=== PATIENT | female | born 1985 | race Caucasian/White ===

== ENCOUNTER 2022-05-09 20:09 | Emergency (ER) | payer OTHER, SELFPAY ==
--- NOTE | 2022-05-09 | ECG_ITS ---
Test Reason : CHEST PAIN Blood Pressure : / mmHG Vent. Rate : 066 BPM Atrial Rate : 066 BPM P-R Int : 198 ms QRS Dur : 102 ms QT Int : 410 ms P-R-T Axes : 027 011 044 degrees QTc Int : 429 ms Normal sinus rhythm Intra-ventricular conduction delay Borderline ECG No previous ECGs available Referred By: Generic ED Physician Electronically Signed By:BHAVIK WELLER MD
--- NOTE | ~2022-05-09 | XR_ITS ---
EXAMINATION: XR CHEST CLINICAL INFORMATION: Chest pain. COMPARISON: None TECHNIQUE: Frontal view of the chest was obtained. FINDINGS: No significant abnormality is noted involving the heart, lungs, mediastinum, bony thorax or soft tissues. XR/XR chest 1V IMPRESSION: Unremarkable chest examination.
[2022-05-09 20:23] VITALS: BP 150/103; PULSE 74; RESP 18; TEMP 36.6; O2SAT 99; BMI 33.0
[2022-05-09 20:37] LABS: MANUAL DIFF FLAG NO
[2022-05-09 20:38] LABS: Basophils Percent Auto 0.5 % (0-2); Eosinophils Absolute Auto 0.4 X10*3/uL (0.0-0.4); Eosinophils Percent Auto 4.7 % (0-4); Hematocrit 39.4 % (37.0-47.0); Hemoglobin 13.7 g/dl (12.0-16.0); Imm Gran Abs Auto 0.01 X10*3/uL (0.00-0.03); Imm Gran Pct Auto 0.1 % (0.0-0.4); Lymphocytes Absolute Auto 2.7 X10*3/uL (1.2-4.9); Lymphocytes Percent Auto 36.4 % (20-40); Mean Corpuscular HGB Conc 34.8 g/dl (31.0-35.0); Mean Corpuscular Hemoglobin 32.6 pg (27.0-33.0); Mean Corpuscular Volume 93.8 fL (80.0-98.0); Mean Platelet Volume 9.5 fL (9.4-12.3); Monocytes Absolute Auto 0.7 X10*3/uL (0.1-1.2); Monocytes Percent Auto 8.7 % (2-11); Neutrophils Absolute Auto 3.7 x10*3/uL (2.0-8.3); Neutrophils Percent Auto 49.6 % (45-73); Platelet Count 264 X10*3/uL (160-400); Red Cell Distribution Width 11.9 % (11.0-16.0); White Blood Count 7.5 X10*3/uL (4.8-10.8)
[2022-05-09 20:52] LABS: Anion Gap 15 (12-20); Blood Urea Nitrogen 15 mg/dL (9-16); Calcium 9.4 mg/dL (8.4-10.2); Carbon Dioxide 25 mmol/L (22-29); Chloride 104 mmol/L (96-108); Creatinine Clr Calc Pharmacy 76.5; Estimated Glomerular Filt Rate 52; Glucose Random 101 mg/dL (60-115); Potassium 3.8 mmol/L (3.3-5.1); Sodium 140 mmol/L (135-145)
[2022-05-09 21:00] LABS: Troponin-I High Sensitivity < 3.5 ng/L (<3.5-17.0)
[2022-05-09 22:56] VITALS: BP 135/88; PULSE 66; RESP 17; TEMP 36.8; O2SAT 97
--- NOTE | 2022-05-09 22:58 | ED.CHESTPAIN ---
HPI - Chest Pain General Chief Complaint: Chest Pain Stated Complaint: Chest pain/L arm numbness Time Seen by Provider: 05/09/22 22:50 Source: patient Mode of arrival: ambulatory Limitations: no limitations History of Present Illness HPI narrative: Patient with no significant past medically history , no family history of sudden cardiac or premature coronary artery disease not on any control pills started to notice left-sided sharp chest pain since 13:00 lasting a few sec multiple episodes since 16:00 noticed some tingling sensation in the left arm. No shortness of breath no fever no cough Related Data Allergies Allergy/AdvReac Type Severity Reaction Status Date / Time No Known Allergies Allergy Unverified 04/16/20 16:19 [No Known Allergies*] Review of Systems Review of Systems: Yes all other systems are reviewed and are negative [facility] Social History Social History Patient Tobacco Use Status: Never used Tobacco Use of substances other than those prescribed or required for medical reasons: No Substance Use Type: Marijuana Advance Directives: No Patient : No Physical Exam Vital Signs: Vital Signs: Last Vital Signs Temp 98.2 F 05/09/22 22:56 Pulse 67 05/09/22 23:12 Resp 19 05/09/22 23:12 BP 134/84 05/09/22 23:12 Pulse Ox 98 05/09/22 23:12 O2 Del Method 05/09/22 23:12 BMI result Body Mass Index 33.0 Appearance: Alert. Oriented X3. No acute distress. Eyes: PERRLA, No Nystagmus ENT: Pharynx normal. Oral Mucosa moist Neck: Normal inspection. Neck supple. CVS: Normal heart rate and rhythm. Pulses normal. Respiratory: No respiratory distress. Equal air entry bilateral, no wheezing/rales/rhonchi Abdomen: Soft and nontender. Bowel sounds are present, no mass palpable, no CVA tenderness Skin: Skin warm and dry. Normal skin color. Normal skin turgor. Extremities: No lower extremity edema. No calf tenderness Neuro: Oriented X 3. No motor deficit. No sensory deficit.No cerebellar signs , cranial nerves II-XII intact MDM - Chest Pain MDM Narrative Medical decision making narrative: Patient with atypical chest pain heart score of 0 Hizentra troponin negative will discharge patient home advised to follow with PCP Lab Data Attestation: I reviewed the patient's lab results. Result diagrams: 05/09/22 20:33 05/09/22 20:33 Labs: Lab Results 05/09/22 05/09/22 05/09/22 Range/Units 20:33 20:33 20:33 WBC 7.5 (4.8-10.8) X10*3/uL RBC 4.20 (4.20-5.50) X10*6/uL Hgb 13.7 (12.0-16.0) g/dl Hct 39.4 (37.0-47.0) % MCV 93.8 (80.0-98.0) fL MCH 32.6 (27.0-33.0) pg MCHC 34.8 (31.0-35.0) g/dl RDW 11.9 (11.0-16.0) % Plt Count 264 (160-400) X10*3/uL MPV 9.5 (9.4-12.3) fL Immature Gran % (Auto) 0.1 (0.0-0.4) % Neut % (Auto) 49.6 (45-73) % Lymph % (Auto) 36.4 (20-40) % [place] % (Auto) 8.7 (2-11) % Eos % (Auto) 4.7 H (0-4) % Baso % (Auto) 0.5 (0-2) % Lymph # (Auto) 2.7 (1.2-4.9) X10*3/uL [place] # (Auto) 0.7 (0.1-1.2) X10*3/uL Eos # (Auto) 0.4 (0.0-0.4) X10*3/uL Baso # (Auto) 0.0 (0.0-0.2) X10*3/uL Abs Immat Gran (auto) 0.01 (0.00-0.03) X10*3/uL Absolute Neuts (auto) 3.7 (2.0-8.3) x10*3/uL Absolute Nucleated RBC 0.000 (0.0-0.012) X10*3/uL Nucleated RBC % (auto) 0.0 (0.0-0.2) /100WBC Sodium 140 (135-145) mmol/L Potassium 3.8 (3.3-5.1) mmol/L Chloride 104 (96-108) mmol/L Carbon Dioxide 25 (22-29) mmol/L Anion Gap 15 (12-20) BUN 15 (9-16) mg/dL Creatinine 1.19 (0.5-1.4) mg/dL Estim Creat Clear Calc 76.5 Estimated GFR 52 Random Glucose 101 (60-115) mg/dL Calcium 9.4 (8.4-10.2) mg/dL Troponin I High Sens < 3.5 (<3.5-17.0) ng/L ECG Data ECG #1: Attestation: I personally reviewed and interpreted this ECG as follows: Interpretation: Normal sinus rhythm heart rate 66 beats per minute normal interval normal axis no acute distress and no acute ischemia Discharge Plan Discharge Clinical Impression: Atypical chest pain Patient Disposition: Home, Self-Care Instructions: Chest Pain (ED) Additional Instructions: Your blood pressure noticed to be slightly elevated decrease your salt intake Follow with PCP for further evaluation Interventions: ED Discharge Assessment Last Done: 05/09/22 23:17 Discharge Date/Time: 05/09/22 23:19
--- NOTE | 2022-05-09 23:00 | PC.NURSE ---
Pt is aox4. Breaths are even and unlabored. o2 sat 98% RA, RR: 16 bpm. NSR on monitor. Abd is soft and nontender. Skin is pink warm and dry. Pt reports sharp chest pain, 2/10 that started earlier today. Pain radiates to the left arm. MD aware.
[2022-05-09 23:12] VITALS: BP 134/84; PULSE 67; RESP 19; O2SAT 98
--- NOTE | 2022-05-09 23:18 | PC.NURSE ---
Discharge instructions provided to pt. Pt verbalizes understanding.
== END 2022-05-09 23:19 | disposition home or self-care (01) ==
LOC: HO.ED 23:18
PROVIDERS: Emergency Provider Internal Medicine
DX: R07.89 Other chest pain (principal); F12.90 Cannabis use, unspecified, uncomplicated
CPT/HCPCS: 36415; 71045; 80048; 84484; 85025; 93005; 99283; 99285

== ENCOUNTER 2023-10-11 08:42 | Outpatient (AMB) | payer OTHER, SELFPAY ==
[2023-10-11 08:43] VITALS: BP 140/82; PULSE 67; O2SAT 96; BMI 38.4
--- NOTE | 2023-10-11 08:43 | A.OFFPC_ITS ---
Vital Signs 3 10/11/23 08:43 Height 5 ft 6 in Weight 238 lb BMI 38.4 BP 140/82 H Blood Pressure Location Lt brachial Position Standing Pulse 67 Pulse Source Pulse Oximeter Pulse Oximetry (%) 96 Oxygen Delivery Method Room Air Intake Visit Reasons: R Foot Pain Intake Note: pt states watermaster right foot/ankle pain and swelling with no relief. no known injury or fall. Level Vial Setter Required: No Allergies No Known Allergies [No Known Allergies*] Allergy (Verified 10/11/23 10:01) Medication List - Last Reconciled 10/11/23 by BABATUNDE Saul- No Known Home Meds Tobacco use date assessed: 10/11/23 HPI HPI Comments 2 History of Present Illness0 Details HEre for R foot pain Known plantar fasciitis Yesterday went to [place] w/ kids Now having pain, feels swollen Applied ice & stretched Antalgic gait w/ limp Has never had injection on R foot; only L foot (NEOS) Had to have calf lengthening surgery on the L PFSH Social History Patient Tobacco Use Status: Current everyday Tobacco user Cigarettes Per Day: 6 Substance Use Type: Marijuana Cognitive needs: No Hearing needs: No Vision needs: No Questionnaire Thrive Questionnaire Date Thrive assessed: 10/11/23 I am a: Patient What is your living situation today?: I have a steady place to live Within the past 12 months, did the food you bought not last and you didn't have the money to get more?: Never true Within the past 12 months, did you worry whether your food would run out before you got money to buy more?: Never true Do you have trouble paying for medicines?: No Do you have trouble getting transportation to medical appointments?: No Do you have trouble paying your heating and electricity bill?: No Do you have trouble taking care of your child, family member or friend?: No Do you have trouble with day-to-day activities such as bathing, preparing meals, shopping, managing finances, etc.?: No Are you currently unemployed and looking for a job?: No Are you interested in more education?: No Please select the resources that you would like help with: None THRIVE Score: 0 AUDIT C Alcohol Use Questionnaire (AUDIT-C) 1. How often do you have a drink containing alcohol?: Never 2. How many drinks containing alcohol do you have on a typical day when you are drinking?: 1 or 2 3. How often do you have six or more drinks on one occasion?: Never Total Score: 0 Review of Systems Const All systems reviewed & are unremarkable except as noted in HPI and below Physical exam (Primary Care) Vital Signs: Last Vital Signs Pulse 67 10/11/23 08:43 BP 140/82 H 10/11/23 08:43 Pulse Ox 96 10/11/23 08:43 Oxygen Delivery Method Room Air 10/11/23 08:43 BMI result Body Mass Index 38.4 Tobacco/Smoking Status: Tobacco use Status Tobacco use date assessed 10/11/23 10/11/23 08:45 Patient Tobacco Use Status Current everyday Tobacco 10/11/23 09:12 Thrive Assessment: Date of Thrive Assessment Date Thrive assessed 10/11/23 10/11/23 08:45 Extrem Ankle/foot/toe images: 2 1. pain w palpation antalgic gait otherwise normal neurovasc exam + ROM Assessment and Plan Assessment & Plan (1) Plantar fasciitis of right foot: Code(s): M72.2 - Plantar fascial fibromatosis Plan: reviewed exercises and stretches refer back to ARVIND who tx her previsouly for same condition on L side for further eval and tx Plan This note is constructed using voice recognition software. While every effort has been made to ensure accuracy in poultry picking machine tender, still errors may have been included Sometimes, these errors may affect the content or meaning of the given sentence . Total time spent caring for the patient today was 30 minutes. This includes time spent before the visit reviewing the chart, time spent during the visit, and time spent after the visit on documentation Orders: Referrals 2 Orthopedics Referral M72.2 - Plantar fascial fibromatosis Coding Level of Care Code Est Pt Level 4 (71424) Diagnoses Plantar fasciitis of right foot M72.2
== END 2023-10-11 10:10 | disposition home or self-care (01) ==
PROVIDERS: Visit Provider Nurse Practitioner Family
DX: M72.2 Plantar fascial fibromatosis (principal)
CPT/HCPCS: 99214

== ENCOUNTER 2024-10-08 10:00 | Outpatient (AMB) | payer OTHER, SELFPAY ==
[2024-10-08 10:17] VITALS: BP 138/90; PULSE 85; O2SAT 97; BMI 39.1
--- NOTE | 2024-10-08 10:17 | AM.OFFWIN_ITS ---
Intake Vital Signs 10/08/24 10:17 Height 5 ft 6 in Weight 242 lb 2 oz BMI 39.1 BP 138/90 H Blood Pressure Location Rt brachial Position Sitting Pulse 85 Pulse Source Pulse Oximeter Pulse Oximetry (%) 97 Oxygen Delivery Method Room Air Intake Visit Reasons: EP cough, high bp?? Intake Note: Patient here for severe cough that has been present for over a week. She also wanted to discuss her elevated BP. Patient Tobacco Use Status: Current everyday Tobacco user Allergies No Known Allergies [No Known Allergies*] Allergy (Verified 10/08/24 10:27) Do you need a note to return to daycare/school/sports/work: No HPI HPI Comments History of Present Illness Details History of Present Illness - The patient is a 38-year-old female pr esenting with persistent cough and sinusitis. - Cough symptoms have persisted for over a week, progressively worsening, with exacerbation at night. - Past medical history includes childhoo d sports-induced asthma. - Cough is aggravated without major asso ciated symptoms like fever or significant nasal congestion. - Beulah-Starkweather and DayQuil have been emp loyed for symptom management, providing partial relief. - Sinus discomfort was reported primaril y on the left side, addressed with nasal rinses which provided relief. Physical Exam General: Cooperative, healthy appearing, comfortable, no acute distress and well developed Orientation: Patient oriented x3 Limitations: No limitations Head: Normal to inspection Ears: Hearing grossly normal bilaterally, TM's normal bilaterally, EAC normal Nose: Normal external nose present Mouth: moist mucosa, posterior oropharynx erythema, no exucates noted Face and sinus: Sinus pressures noted in maxillary and frontal regions Eyes: Appearance normal, both eyes and all related structures Neck: Normal visual inspection and Yes full ROM Respiratory: Normal respiratory effort and able to speak in complete sentences.CTA Cardiovascular: Regular rate and rhythm. Normal S1 and S2 Skin: No rashes or lesions noted Neuro: Patient oriented x3 Extremities: Normal to inspection [facility] Social History Patient Tobacco Use Status: Current everyday Tobacco user Cigarettes Per Day: 6 Substance Use Type: Marijuana Cognitive needs: No Hearing needs: No Vision needs: No Review of Systems Const All systems reviewed & are unremarkable except as noted in HPI and below Physical Exam Vital Signs: Last Vital Signs Pulse 85 10/08/24 10:17 BP 138/90 H 10/08/24 10:17 Pulse Ox 97 10/08/24 10:17 Oxygen Delivery Method Room Air 10/08/24 10:17 BMI result Body Mass Index 39.1 Office Procedures Nebulizer Treatment Nebulizer Treatment [id number] RX initial, or Nebulizer Subsequent Treatment Office Meds ipratropium 0.5 mg-albuterol 3 mg (2.5 mg base)/3 mL nebulization soln Performing Provider: Hansa Varghese PA-C Performing Location: [facility] [place] [facility] Administered by: Hansa Varghese PA-C on 10/08/24 10:56 Dose Route Admin Location Dispensed Lot Number Expiration Date [facility] Media Services Coordinator 3 mL inhalation 3 mL [id number] 10/25/25 Assessment & Plan Assessment & Plan (1) Lower respiratory infection (e.g., bronchitis, pneumonia, pneumonitis, pulmonitis): Code(s): J22 - Unspecified acute lower respiratory infection Plan: Patient given a nebulizer treatment in office which helped reduce the patient's cough, so I have prescribed an albuterol inhaler to use for shortness of breath and cough. A prescription for benzonatate will be provided to suppress cough, aiming to improve sleep. A swab test for flu, COVID-19, and RSV will be conducted to rule out active viral infections. Supportive care including contin ued use of nasal rinses and monitoring for fever or new respiratory symptoms is advised. Patient was informed and verbally consented to the use of an ambient scribe for clinic note documentation during this visit. Orders: Orders SARS-CoV2/FLU/RSV Today R09.89 - Other specified symptoms and signs involving the circulatory and respiratory systems AMB Nebulizer Treatment Today J22 - Unspecified acute lower respiratory infection Medications: New albuterol sulfate 90 mcg/actuation 2 puffs inhalation Q6H PRN 8.5 grams 0RF shortness of breath or wheezing or cough benzonatate 200 mg PO BEDTIME PRN 10 caps 0RF cough Coding Level of Care Code New Pt Level 4 (83783) Diagnoses Lower respiratory infection (e.g., bronchitis, pneumonia, pneumonitis, pulmonitis) J22 CPT Codes Nebulizer Treatment - Nebulizer Treatment, initial or subsequent: 01486- Nebulizer/MDI RX initial, or Nebulizer Subsequent Treatment ([id number])
== END 2024-10-08 11:05 | disposition home or self-care (01) ==
PROVIDERS: Visit Provider Physician Assistant
DX: J22 Unspecified acute lower respiratory infection (principal)

== ENCOUNTER 2024-10-08 10:00 | Outpatient (REF) | payer OTHER, SELFPAY ==
[2024-10-08 15:32] LABS: Influenza A PCR NEGATIVE (Negative); Influenza B PCR NEGATIVE (Negative); Resp Syncy Virus RNA Qual PCR NEGATIVE (Negative); SARS COV2 PCR INHOUSE NEGATIVE (Negative)
== END 2024-10-08 10:01 | disposition home or self-care (01) ==
LOC: HO.LAB 10:00
PROVIDERS: Physician Assistant
DX: J22 Unspecified acute lower respiratory infection (principal); R09.89 Other specified symptoms and signs involving the circulatory and respiratory systems
CPT/HCPCS: 0241U; 94640; 99202

== ENCOUNTER 2025-05-28 10:28 | Emergency (ER) | payer OTHER, SELFPAY ==
[2025-05-28 10:36] VITALS: BP 159/99; PULSE 81; RESP 18; TEMP 36.8; O2SAT 99; BMI 40.7
--- NOTE | 2025-05-28 10:38 | ED_ITS ---
HPI - General Adult General Chief complaint: Upper Respiratory Symptoms Stated complaint: Cough Congestion Running Nose Time Seen by Provider: 05/28/25 11:08 Source: patient Mode of arrival: ambulatory Limitations: no limitations History of Present Illness ED Provider: Dr. Maguire HPI narrative: 39-year-old female history tobacco use presented hospital for evaluation of 1 month of voice change, sore throat, cough. No body aches. Went to urgent care yesterday negative chest x-ray finding. Symptom has not been improving therefore presents to ER for further evaluation. No acute shortness of breath currently no tachypnea. Related Data Home Medications ?Medication ?Instructions ?Recorded ?Confirmed aripiprazole 5 mg tablet mg PO DAILY 10/08/24 clonidine HCl 0.1 mg tablet mg PO 3XD 10/08/24 Previous Rx's ?Medication ?Instructions ?Recorded albuterol sulfate 90 mcg/actuation 2 puff inhalation Q 6H PRN 10/08/24 aerosol inhaler shortness of breath or wheez ing or cough #8.5 grams benzonatate 200 mg capsule 200 mg PO BEDTIME PRN cough #10 10/08/24 caps albuterol sulfate 90 mcg/actuation 2 puff inhalation Q 6H PRN 05/28/25 aerosol inhaler (Ventolin HFA) shortness of breath or wheezing 5 days #6.7 grams amoxicillin 500 mg capsule 500 mg PO Q12H 7 days #14 c aps 05/28/25 azithromycin 500 mg tablet See Rx Instructions PO .COM PLEX #3 05/28/25 tabs prednisone 20 mg tablet 40 mg (2 x 20 mg) PO DAILY 5 days 05/28/25 #10 tabs Allergies Allergy/AdvReac Type Severity Reaction Status Date / Time No Known Allergies (No Known Allergy Verified 05/28/25 10:40 Allergies*) Review of Systems Review of Systems: Pertinent review of systems as mentioned in HPI. All other system otherwise negative. [facility] Past Medical History [facility] Narrative: Medical history as mentioned in [facility] Social History Social History Patient Tobacco Use Status: Current everyday Tobacco user Cigarettes Per Day: 6 Substance Use Type: Marijuana Advance Directives: No Advance Directives Information Provided: Yes Cognitive needs: No Hearing needs: No Vision needs: No Physical Exam ED Exam Exam: General: Pleasant, no distress, interacting appropriately Head: Normacephalic, atraumatic ENT: oral mucosa moist, neck supple, no tracheal deviation, no sign of exudate in the oropharynx Cardiovascular: regular rate, regular rhythm, no murmurs, rubbing, gallops Respiratory: CTAB, no wheeze, rales, rhonchi Neurological: Awake and alert, no facial droop noted Skin: Warm and dry Psychiatric: Appropriate mood and thoughts Vital Signs: Vital Signs - 24 hr 05/28/25 10:36 Temperature 98.2 F Pulse Rate 81 Respiratory Rate 18 Blood Pressure 159/99 H Pulse Oximetry 99 Oxygen Delivery Method Room Air BMI result Body Mass Index 40.7 Course Course Course Narrative: Rapid medical screening exam was performed. Patient stable at time of evaluation. 39 yo history female history of smoking presented to ED for evaluation for one month of shortness of breath and coughing, sore throat and voice change. Suspect viral laryngitis. No wheezing on exam, No stridor. CXR at walk in was negative. Mickie Maguire, DO 05/28/25 [facility] Medical Decision Making Medical Decision Making [facility] Narrative: This is a 39-year-old female presented hospital today for evaluation of sore throat coughing and voice change. I suspect patient likely had pharyngitis along with the signs of laryngitis due to an upper respiratory infection however given the chronicity of this infection being over a month now. We will plan to cover patient with antibiotic. We will also give patient Z-Darrius coverage for atypical pneumonia that may not be showing up on chest x-ray. Prednisone will be provided. We will plan to prescribe patient with albuterol inhaler pump as well. We will also plan to provide primary care doctor referral for the patient does time. Patient is stable. No signs of hypoxia. Differential Diagnosis Differential Diagnoses: The differential diagnosis associated with the presentation includes Pharyngitis, laryngitis, upper respiratory infection, strep throat Lab Data [facility] Lab Attestation statement: I reviewed the patient's lab results. Labs: Lab Results 05/28/25 Range/Units 10:49 S. pyogenes GrpA KRISTEN Negative (Negative) Discharge Plan Discharge Clinical Impression: Laryngitis Upper respiratory infection Qualifiers: URI type: unspecified URI Qualified Code(s): J06.9 - Acute upper respiratory infection, unspecified Patient Disposition: Home, Self-Care Instructions: Pharyngitis (ED) Prescriptions: New prednisone 20 mg tablet 40 mg PO DAILY 5 Days Qty: 10 0RF amoxicillin 500 mg capsule 500 mg PO Q12H 7 Days Qty: 14 0RF albuterol sulfate [Ventolin HFA] 90 mcg/actuation HFA aerosol inhaler 2 puff inhalation Q6H PRN (Reason: shortness of breath or wheezing) 5 Days Qty: 6.7 0RF azithromycin 500 mg tablet See Rx Instructions .ROUTE .COMPLEX Qty: 3 0RF Rx Instructions: For 500 mg dose pack: take 500 mg once daily for 3 days No Action aripiprazole 5 mg tablet PO DAILY clonidine HCl 0.1 mg tablet PO 3XD benzonatate 200 mg capsule 200 mg PO BEDTIME PRN (Reason: cough) Qty: 10 0RF albuterol sulfate 90 mcg/actuation HFA aerosol inhaler 2 puff inhalation Q6H PRN (Reason: shortness of breath or wheezing or cough) Qty: 8.5 0RF Referrals: [facility] [Provider Group, Internal Medicine] Print Language: Cymraes
[2025-05-28 11:11] LABS: IDNOW Serial# 6674DD1D; Strep A Nucleic Acid Negative (Negative)
[2025-05-28] MEDS: Lidocaine HCl Viscous 2 % 15 ML SOLUTION MUCOUS MEM (11:16)
[2025-05-28 11:28] VITALS: PULSE 83; RESP 14; O2SAT 100
[2025-05-28] MEDS: Albuterol/Iprat 2.5/0.5MG 3 ML AMPUL.NEB INHALE (11:28)
[2025-05-28 11:33] VITALS: BP 155/99; PULSE 83; RESP 14; TEMP 36.8; O2SAT 96
[2025-05-28 11:43] LABS: IDNOW Serial# 152EDE1D
[2025-05-28 11:44] LABS: COVID-19 Test Negative (Negative); IDNOW Serial# 16C4AD1C; Influenza B2 Negative (Negative)
--- OUTSIDE RECORDS SUMMARY | 2025-05-28 14:07 | XMS_ITS | Clinical Summary ---
Author Organization [facility] Address [address] [place] [id number] Phone Care Team Providers Care Shop Foreman Name Role Phone Pcp, Unknown Primary Care Provider Unavailabl e Allergies No known active allergies Medications No known medications Immunizations No known immunizations Social History Tobacco Use Types Packs/Day Years Used Date Smoking Tobacco: Former Cigarettes Smokeless Tobacco: Never Tobacco Cessation:Counseling Given: Not Answered Education Answer Date Recorded Are you interested in more education? Not on gokul e 11/26/2022 Are you concerned about learning? Not on file 11/26/2022 No 11/26/2022 No 11/26/2022 Digital Access Answer Date Recorded No 12/25/2022 No 12/25/2022 No 12/25/2022 Reliable internet access at home? Not on file 12/25/2022 Device with a working camera? Not on file Comments Unknown Sex and Gender Information Value Date Recorded Sex Assigned at Not on file Legal Sex Female 3:40 PM EST Gender Identity Not on file Sexual Orientation Not on file Last Filed Vital Signs Vital Sign Reading Time Taken Comments Blood Pressure 134/87 08/03/2022 4:01 PM EST Pulse 79 08/03/2022 4:01 PM EST Temperature 36.6 C (97.9 F) 08/03/2022 4:01 PM EST Respiratory Rate 24 08/03/2022 4:01 PM EST Oxygen Saturation 100% 08/03/2022 4:0 1 PM EST Inhaled Oxygen Concentration - - Weight 93 kg (205 lb) 08/03/2022 4:01 PM EST patient reported Height 166.4 cm (5' 5.5 ) 08/03/2022 4: 01 PM EST patient reported Body Mass Index 33.59 08/03/2022 4:01 PM EST Plan of Treatment Health Maintenance Due Date Last Done Comments Adult Td,Tdap Booster 1987 DEPRESSION SCREENING 1999 SMOKING Hx and SMOKELESS TOBACCO SCREENING 11/08/2000 HEPATITIS C SCREENING 11/08/2005 HIV ONE-TIME SCREENING (18-6 5 YEARS) 11/08/2005 PAP SMEAR 11/08/2008 SCREENING FOR DIABETES 11/08/2022 INFLUENZA VACCINE (#1) 2025 COVID-19 VACCINE (3 2024-2 6 season) 2025 04/07/2022, 03/10/2022 HEPATITIS A VACCINES Aged Out No long er eligible based on patient's age to complete this topic HIB VACCINES Aged Out No longer eligi ble based on patient's age to complete this topic MENINGOCOCCAL VACCINES (ACWY) Aged Out No longer eligible based on patient's age to complete this topic MENINGOCOCCAL VACCINES (B) Aged Out N o longer eligible based on patient's age to complete this topic PNEUMOCOCCAL VACCINES (0-49 years) Aged Out No longer eligible b ased on patient's age to complete this topic Medical Devices Not on file Insurance [employer] [place] [facility] [employer] [place] [facility] [employer] [place] [facility] [place] [address] [place] [address] [employer] Care Teams Shop Foreman Relationship Specialty Start Date End Date Pcp, Unknown PCP - General 08/03/22 Additional Source Comments The information contained in this document represents components of the legal health record. It is not the complete legal health record.[facility]
== END 2025-05-28 11:47 | disposition home or self-care (01) ==
PROVIDERS: Emergency Provider Student in an Organized Health Care Education/Training Program
DX: J06.9 Acute upper respiratory infection, unspecified (principal); J04.0 Acute laryngitis; J02.9 Acute pharyngitis, unspecified; R05.9 Cough, unspecified; Z03.818 Encounter for observation for suspected exposure to other biological agents ruled out
CPT/HCPCS: 87502; 87635; 87651; 94640; 99283; 99284